=== PATIENT | female | born 1975 | race Caucasian/White ===

== ENCOUNTER 2017-08-29 23:56 | Emergency (ER) | payer SELFPAY ==
[~2017-08-29] VITALS: Ht 154.9 cm; Wt 77.0 kg
[2017-08-30 00:01] VITALS: BP 181/112
== END 2017-08-30 03:00 | disposition left against medical advice (07) ==
LOC: EDBD 23:56 → ER 23:56
DX: Z53.21 Procedure and treatment not carried out due to patient leaving prior to being seen by health care provider (principal); Z90.49 Acquired absence of other specified parts of digestive tract